=== PATIENT | female | born 1985 | race Caucasian/White ===

== ENCOUNTER 2019-10-09 19:21 | Emergency (ER) | payer BC, SELFPAY ==
--- NOTE | 2019-10-09 19:31 | ED.HA ---
HPI - Headache General Chief Complaint: Headache Stated Complaint: migraine Time Seen by Provider: 10/09/19 19:30 Source: patient and RN notes reviewed History of Present Illness HPI Narrative: Patient is a 34-year-old female who presents the urgent care with a migraine. Patient states that she has had a migraine since Friday with her typical symptoms of a right-sided posterior headache that wraps to the front of the head and through the right eye. Patient states that she ran out of her Imitrex and has been unable to get a hold of her PCP for a refill of the prescription. The patient states the last time she is taken the medication was yesterday. Patient states she also experiences nausea and vomiting with the migraines but at this time she denies of any vomiting. Patient states that she has had to go to the emergency room in the past but is trying not to let it get that bad . Patient denies of any vision changes. Denies of this being her worst headache . No other acute complaints. No acute distress noted. Patient read the plan of care. Related Data Home Medications Medication Instructions Recorded Confirmed sumatriptan succinate [Imitrex] 100 mg PO 10/09/19 Allergies Allergy/AdvReac Type Severity Reaction Status Date / Time No Known Allergies Allergy Verified 10/09/19 19:39 Review of Systems Review of Systems: Narrative: CONSTITUTIONAL: Denies fever, chills, or sweats. EYES: Denies visual changes, redness, or discharge. ENT: Denies rhinorrhea, congestion, sore throat, or otalgia. CARDIOVASCULAR: Denies chest pain, palpitations, or edema. RESPIRATORY: Denies cough or dyspnea. GASTROINTESTINAL: Denies abdominal pain, nausea, vomiting, or diarrhea. GENITOURINARY: Denies dysuria or hematuria. SKIN: Denies rash or itching. MUSCULOSKELETAL: Reports of a right-sided migraine from the back of the head to the front eye NEUROLOGIC: Denies headache, numbness, or weakness. All other systems reviewed are negative, except as documented in HPI. PMFSH Social History Social History Gender identity (if verbalized by the patient): Female Comments At the time of my signature, I reviewed and agree with the nursing past medical, surgical, social, and family history. There is no relevant family history pertinent to the patient complaint. Exam Narrative: Exam Narrative: GENERAL: This is a well-nourished, well-developed patient, in no apparent distress. HEAD: normocephalic, atraumatic. EYES: PERRL. Sclera clear/white. Vision is grossly intact. EARS: External ears normal, auditory canals clear and without drainage, TMs normal without perforation. Hearing grossly intact. NOSE: External nose normal with no obvious nasal discharge, nares without redness, no rhinorrhea. THROAT: Mucous membranes moist NECK: Neck supple CARDIOVASCULAR: Regular rate and rhythm without murmurs, gallops, or rubs. RESPIRATORY: Clear to auscultation. Breath sounds equal bilaterally. No wheezes, rales, or rhonchi. SKIN: warm, intact with no suspicious lesions or rash, good texture and turgor. NEURO: awake, alert, and oriented to person, place and time. There were no obvious focal neurologic abnormalities. EXTREMITIES: No clubbing, cyanosis, or edema. Course Vital Signs Vital signs: Vital Signs Temperature 98.0 F 10/09/19 19:33 Pulse Rate 98 10/09/19 19:33 Respiratory Rate 20 10/09/19 19:33 Blood Pressure 153/94 H 10/09/19 19:33 Pulse Oximetry 100 10/09/19 19:33 Temperature 98.0 F 10/09/19 19:33 Pulse Rate 98 10/09/19 19:33 Respiratory Rate 20 10/09/19 19:33 Blood Pressure 153/94 H 10/09/19 19:33 Pulse Oximetry 100 10/09/19 19:33 Reviewed?patient is informed that they may have pre-hypertension or hypertension based on a blood pressure reading in the department. I recommend the patient call the primary care provider listed on their discharge instructions or a physician of their choice this week to arrange follow-up for
[2019-10-09 19:33] VITALS: BP 153/94; PULSE 98; RESP 20; TEMP 36.7; O2SAT 100
== END 2019-10-09 19:45 | disposition home or self-care (01) ==
PROVIDERS: Emergency Provider Nurse Practitioner Family
DX: G43.909 Migraine, unspecified, not intractable, without status migrainosus (principal)
CPT/HCPCS: 99203; G0463

== ENCOUNTER → 2020-03-15 07:23 | Outpatient (CLI) | payer BC, SELFPAY ==
--- NOTE | ~2020-03-15 | MR_ITS ---
EXAMINATION: MR brain/brain stem wo con DATE: 03/15/2020 07:55 INDICATION: Migraine headache. TECHNIQUE: Magnetic resonance imaging (MRI) of the brain and brainstem was performed without intraven ous contrast. Sequences included sagittal and axial T1-weighted FSE, axial diffusion-weighted FS EPI, axial T2*-weighted GRE, axial T2-weighted FLAIR Propeller, and axial T2-weighted Propeller. Apparent diffusion coefficient (ADC) maps were created. COMPARISON: None. FINDINGS: There is a focus of increased T2-weighted signal intensity in the left frontal lobe white m atter, which is within normal limits as an isolated finding. There is no intracranial hemorrhage, acu te infarction, or abnormal intracranial mass lesion. The ventricles are normal in size. There is mild mucosal thickening in right maxillary sinus. The orbits are normal. The mastoid air cells are normal . IMPRESSION: 1. Normal brain. Reviewed, dictated and finalized at location A. E WINDER IMPRESSION: 1. Normal brain.
== END ==
PROVIDERS: PCP Family Medicine; Visit Provider Family Medicine
DX: G43.909 Migraine, unspecified, not intractable, without status migrainosus (principal)
CPT/HCPCS: 70551

== ENCOUNTER → 2021-01-02 07:48 | Outpatient (CLI) | payer BC, SELFPAY ==
--- NOTE | ~2021-01-02 | MMUS_ITS ---
EXAMINATION: MM diagnostic meghna BI w mehgan, US breast RT limited HISTORY: Palpable lump in the upper outer quadrant of the right breast TECHNIQUE: Craniocaudal, mediolateral, and mediolateral oblique 3-D tomosynthesis images of the gt ts were performed and synthetic 2-D images were generated. CAD analysis was submitted and interpreted . High resolution limited right breast ultrasound was performed. COMPARISON: None, baseline BREAST PARENCHYMAL COMPOSITION: The breasts are extremely dense, which lowers the sensitivity of mamm ography. FINDINGS: MAMMOGRAPHIC FINDINGS: There are round and coarse calcifications in a regional distribution in the upper outer quadrant of t he right breast. No suspicious mass or architectural distortion is identified. Subtle focal asymmetry is identified in the upper outer quadrant of the breast compared to the left. Left breast: There is no evidence of suspicious mass, calcification, or architectural distortion to suggest malignancy. ULTRASOUND: No discrete cystic or solid mass is identified in the region of the palpable abnormality of the right breast. There are cysts in the upper outer quadrant of the breast measuring up to 4 mm. Calcificatio ns are noted. IMPRESSION: 1. Indeterminate calcifications in the upper outer quadrant of the right breast in the area of palpab le concern. 2. Stereotactic biopsy is recommended. BI-RADS category 4, suspicious findings. Reviewed, dictated and finalized at location A. E TECHNICIAN IMPRESSION: 1. Indeterminate calcifications in the upper outer quadrant of the right breast in the area of palpable concern. 2. Stereotactic biopsy is recommended. BI-RADS category 4, suspicious findings.
== END ==
PROVIDERS: PCP Physician Assistant; Visit Provider Physician Assistant
DX: N63.10 Unspecified lump in the right breast, unspecified quadrant (principal); R92.8 Other abnormal and inconclusive findings on diagnostic imaging of breast
CPT/HCPCS: 76642; 77062; 77066; G0279

== ENCOUNTER 2021-01-19 10:24 | Outpatient (CLI) | payer BC, SELFPAY ==
--- NOTE | ~2021-01-19 | MM_ITS ---
MM stereotactic bx RT, MM post biopsy diagnostic RT, MM stereotactic specimen RT EXAMINATION: MM ster eotactic bx RT, MM post biopsy diagnostic RT, MM stereotactic specimen RT DATE: Ryan Anderson M.D. INDICATION: Abnormal calcifications in the right breast. Stereotactic core biopsy is requested evalu ate for malignancy.] TECHNIQUE AND FINDINGS: The risks and potential benefits of the procedure were discussed with the patient and written informe d consent was obtained. The patient was placed in the prone position clustered at the table with the right breast in lateral compression, and the area of interest was localized and targeted utilizing d igital imaging with stereotaxis. After sterile preparation of the skin, 1% lidocaine was utilized for local anesthesia at the skin pun cture site and 1% lidocaine with epinephrine was utilized for deeper local anesthesia/is about the bi opsy site. A 9G Mediasurface vacuum assisted biopsy needle was advanced to the level of the calcification o f interest from a lateral approach utilizing stereotactic guidance and a total of 6 tissue core biops ies were obtained. A specimen radiograph demonstrates that the calcifications of interest are included within the tissue cores. A tissue marker clip was then placed at the biopsy site. The needle was removed and hemosta sis was achieved. The patient tolerated the procedure well and there is no evidence of significant i mmediate complication. The patient was given verbal as well as written postprocedural instructions p rior to discharge from the department. Tissue cores were submitted to surgical pathology for histolo gic analysis. A 2-view right unilateral digital mammogram was obtained post procedure and this demonstrates that th e tissue marker clip is in expected position.] IMPRESSION: 1. Successful stereotactic biopsy of calcifications in the upper outer quadrant of the right breast, followed by tissue marker clip placement. Please refer to pathology report for histologic analysis. Reviewed, dictated and finalized at location A. SCUDDER IMPRESSION: 1. Successful stereotactic biopsy of calcifications in the upper outer quadran t of the right breast, followed by tissue marker clip placement. Please refer to pathology report for histologic analysis. IMPRESSION: 1. Successful stereotactic biopsy of calcifications in the upper outer quadran t of the right breast, followed by tissue marker clip placement. Please refer to pathology report for histologic analysis.
== END 2021-01-19 10:25 | disposition home or self-care (01) ==
PROVIDERS: PCP Physician Assistant; Visit Provider Physician Assistant
DX: N60.11 Diffuse cystic mastopathy of right breast (principal)
CPT/HCPCS: 19081; 77065; 88305

== ENCOUNTER 2024-02-22 19:56 | Emergency (ER) | payer BC, SELFPAY ==
[2024-02-22 19:59] VITALS: BP 133/93; PULSE 98; RESP 20; TEMP 36.6; O2SAT 100
--- NOTE | 2024-02-22 21:06 | ED_ITS ---
HPI - General Adult General Chief complaint: Headache Stated complaint: migraine for 4 days Time Seen by Provider: 02/22/24 20:56 History of Present Illness HPI narrative: Patient is a 38-year-old female who presents to the emergency department this evening complaining of a migraine headache for the past 4 days. Patient states that she does have a history of migraine headaches and takes sumatriptan for but she max out on her dose today. Patient admits that this feels just like her usual migraine headaches and rates it between a 6 to an 8 on the pain scale at this time. Denies any sudden onset worst headache of her life sensation. Admits to photophobia, nausea and vomiting which are associated with her migraine headaches. Denies any fevers or chills at home. No additional symptoms or concerns at this time. Related Data Allergies Allergy/AdvReac Type Severity Reaction Status Date / Time hydrocodone AdvReac Intermediate Nausea and Verified 02/22/24 19:57 Vomiting Review of Systems Review of Systems: All systems are reviewed and are negative unless stated otherwise in the HPI. [facility] Surgical History Surgical History History of 2013, 2016, 2018 Family History Family History Other Diabetes mellitus Social History Social History Smoking status: Never smoker Alcohol intake: current Drinks per week: 6 Living arrangements: with family Gender identity (if verbalized by the patient): Female Spiritual care concerns: No Exam Narrative: General: Alert, awake, afebrile, in no acute distress. HEENT: PERRL, no rhinorrhea, no post nasal drip, oropharynx clear, photophobia. Neck: Trachea midline, no JVD, no lymphadenopathy. Cardiovascular: Regular rate and rhythm, no murmurs, rubs or gallops, no peripheral edema. Respiratory: Clear to auscultation bilaterally, no tachypnea, no wheezing, no rhonchi, no rubs, no respiratory distress. Abdomen: Soft, nontender, nondistended, no rebound, no guarding, no peritoneal signs. Musculoskeletal: No joint swelling or deformity, normal muscle tone. Skin: No rashes or petechia, no signs of infection. Psychiatric: Alert and oriented, normal behavior and judgment for situation. Neurological: Alert and oriented to person, place, and time. Follows all commands. No focal deficits, speech is clear and fluent. Course Vital Signs Vital signs: Vital Signs Temperature 97.8 F 02/22/24 19:59 Pulse Rate 98 02/22/24 19:59 Respiratory Rate 20 02/22/24 19:59 Blood Pressure 133/93 H 02/22/24 19:59 Pulse Oximetry 100 02/22/24 19:59 Oxygen Delivery Room Air 02/22/24 19:59 Temperature 97.8 F 02/22/24 19:59 Pulse Rate 90 02/22/24 21:24 Respiratory Rate 15 02/22/24 21:24 Blood Pressure 136/102 H 02/22/24 21:24 Pulse Oximetry 98 02/22/24 21:24 Oxygen Delivery Room Air 02/22/24 19:59 Medical Decision Making MDM Narrative Medical decision making narrative: The patient was evaluated by myself in the emergency department. History is obtained from patient who is an independent historian and physical exam was performed. External medical records were reviewed at this time. IV was established and pertinent tests were ordered. Patient was administered 1 L IV fluid bolus with normal saline, 10 mg of IV Reglan, 25 mg of IV Benadryl and 15 mg of IV Toradol. Differential diagnosis considerations include migraine headache, tension headac he, sinus headache, dehydration, acute viral syndrome. Comorbidities impacting this visit include history of migraine headaches. I have evaluated and discussed social determinants of health with the patient that could potentially impact subsequent diagnosis and treatment plans. On repeat assessment of the patient, reevaluation revealed that the patient is doing well and is in no acute distress. Patient symptoms have improved since she arrived to our emergency department now rating her headache at 2/10 on the pain scale. Repeat vital signs were all reviewed and noted to be stable. Differ ential diagnosis and treatment plan were discussed with the patient at bedside. Patient agrees with discussion and after shared medical decision making agrees with discharge. All questions were answered to the patient's satisfaction. Patient will follow up with her PCP in 3-5 days. Patient was provided with strict return precautions and instructed to return to the emergency department if any new or worsening symptoms develop. The patient was discharged in stable condition. Vital Signs Vital Signs: Vital Signs Temperature 97.8 F 02/22/24 19:59 Pulse Rate 98 02/22/24 19:59 Respiratory Rate 20 02/22/24 19:59 Blood Pressure 133/93 H 02/22/24 19:59 Pulse Oximetry 100 02/22/24 19:59 Oxygen Delivery Room Air 02/22/24 19:59 Temperature 97.8 F 02/22/24 19:59 Pulse Rate 90 02/22/24 21:24 Respiratory Rate 15 02/22/24 21:24 Blood Pressure 136/102 H 02/22/24 21:24 Pulse Oximetry 98 02/22/24 21:24 Oxygen Delivery Room Air 02/22/24 19:59 Discharge Plan Discharge Clinical Impression: Migraine, Headache Patient Disposition: Home, Self-Care Condition: Improved Instructions: Antibiotic Form, Migraine Headache (ED) Additional Instructions: Please follow-up with your family doctor within the next 3-5 days. Maintain your oral hydration by drinking lots of fluids. Return to the emergency department if any new or worsening symptoms develop. Patient Language: Belgian Prescriptions: No Action sumatriptan succinate [Imitrex] 100 mg tablet 100 mg PO ONCE Qty: 10 0RF Rx Instructions: max, two tablets within 24hr peroid Follow-up/Referrals: Shona,Gayle Friedman PA-C [Non-Staff] - 3 Days Time of Disposition: 22:17
[2024-02-22] MEDS: SODIUM CHLORIDE 0.9% IV 1,000 ML 999 ML IV CONT (21:14)
[2024-02-22] MEDS: KETOROLAC 15 MG/ML VIAL (*BKC) IV PUSH (21:15)
[2024-02-22] MEDS: METOCLOPRAMIDE HCL INJ 10 MG/2 ML VIAL IV PUSH (21:16)
[2024-02-22] MEDS: diphenhydrAMINE HCl INJ 50 MG/ML VIAL 25 MG IV PUSH (21:16)
[2024-02-22 21:24] VITALS: BP 136/102; PULSE 90; RESP 15; O2SAT 98
[2024-02-22 22:25] VITALS: BP 128/82; PULSE 78; RESP 15; O2SAT 100
== END 2024-02-22 22:25 | disposition home or self-care (01) ==
PROVIDERS: Emergency Provider Emergency Medicine; PCP Family Medicine
DX: G43.909 Migraine, unspecified, not intractable, without status migrainosus (principal)
CPT/HCPCS: 96361; 96374; 96375; 99284; J1200; J1885; J2765; J7030